=== PATIENT | female | born 1965 | race African-American/Black ===

== ENCOUNTER 2017-02-06 12:07 | Emergency (ER) | payer OTHER ==
[~2017-02-06 12:07] MED LIST: ALBU17I INH; IBUP400 PO
[2017-02-06 12:09] VITALS: BP 147/90; PULSE 97; RESP 18; TEMP 99.1; O2SAT 98
--- NOTE | 2017-02-06 12:13 | PD ---
Physical Exam Time Seen by Provider: 12:12 Narrative 51 y/o female presents for evaluation of itching and drainage of the skin around the L eye. She got scratched by a puppy a month ago. VSS Seen at triage desk. Awaiting bed placement. Data Data Last Documented VS Vital Signs Date Time Temp Pulse Resp B/P Pulse Ox O2 Delivery O2 Flow Rate FiO2 02/06/17 12:09 99.1 97 18 147/90 98 MDM Medical Record Reviewed: Yes Supervised Visit with CHARLY: No Robby Swenson February 06, 2017 12:13
[2017-02-06] MEDS ORDERED: POLY10O EACH EYE (12:38)
[2017-02-06] MEDS ORDERED: BACT800T5 PO (12:38)
[2017-02-06] MEDS ORDERED: CEPH-460 PO (12:38)
--- NOTE | 2017-02-06 12:40 | PD ---
HPI Chief Complaint: Eye Problems/Injury Time Seen by Provider: 12:36 Travel History International Travel<30 days: No Contact w/Intl Traveler<30days: No Traveled to known affect area: No History of Present Illness HPI 51-year-old female presents to the emergency Department with complaint of a rash underneath her eyes times one month and clear eye drainage for the past few days. The rash started underneath her left eye and has spread to underneath her right eye within the past month. She denies change in vision. Denies eye pain, itchiness, irritation. Denies fever, vomiting. She has tried Neosporin to the rash with no relief of symptoms. She denies the rash is painful or itchy. She has an appointment with medical services assistant in 2 weeks and is requesting antibiotics. Allergies to morphine. She has no other medical complaints. No other modifying factors or associated signs and symptoms. PFSH Past Medical History Asthma: Yes Cardiovascular Problems: No Diabetes: Yes Patient Takes Glucophage: No Diminished Hearing: No Respiratory: Yes (ASTHMA) Immunizations Current: Yes Tetanus Vaccination: < 5 Years ?: Not Menopausal: Yes : 1 Para: 2 Past Surgical History Section: Yes Hysterectomy: Yes Social History Alcohol Use: No Tobacco Use: Yes (1 cigar SOMEDAYS) Substance Use: Yes (daily marijuana) Allergies-Medications (Allergen,Severity, Reaction): Coded Allergies: Morphine (Verified Adverse Reaction, Intermediate, ITCHING, 02/06/17) Reported Meds & Prescriptions Reported Meds & Active Scripts Active Keflex (Cephalexin) 500 Mg Cap 500 Mg PO Q8H 10 Days Bactrim DS (Sulfamethoxazole-Trimethoprim) 800-160 Mg Tab 1 Tab PO BID 10 Days Polytrim Opth Drops (Polymyxin/Trimethoprim Sulfate) 10,000-0.1 Unit/Ml-% Soln 2 Drop EACH EYE Q6HR 7 Days Proventil Mdi (Albuterol Sulfate) 17 Gm Aero 2 Puff INH Q4 PRN Reported Motrin 400 mg Tab (Ibuprofen) 400 Mg Tab 400 Mg PO Q6H PRN Review of Systems Except as stated in HPI: all other systems reviewed are Neg Physical Exam Narrative GENERAL: Well-nourished, well-developed female patient, in no acute distress SKIN: Warm and dry. Erythemic nonspecific skin eruption with different stages of healing below bilateral eyes; left worse than right; there are no signs of infection and both areas are without edema or drainage. HEAD: Atraumatic. Normocephalic. Pupils equal and round at 3 mm with brisk reaction. PERRLA. EOMI. visual acuity 20/40 bilateral. Bilateral eye without scleral erythema and mild lid edema. No orbital tenderness, erythema or cellulitis. Bilateral eye without photophobia. No consensual photophobia. No scleral icterus. Clear drainage. ENT: Mucosa pink and moist. Airway patent. NECK: Trachea midline. CARDIOVASCULAR: Regular rate and rhythm. RESPIRATORY: No accessory muscle use. GASTROINTESTINAL: Flat. MUSCULOSKELETAL: No obvious deformities. No clubbing. No cyanosis. No edema. NEUROLOGICAL: Awake and alert. Oriented 3. No obvious cranial nerve deficits. Motor grossly within normal limits. Normal speech. PSYCHIATRIC: Appropriate mood and affect; insight and judgment normal. Data Data Last Documented VS Vital Signs Date Time Temp Pulse Resp B/P Pulse Ox O2 Delivery O2 Flow Rate FiO2 02/06/17 12:09 99.1 97 18 147/90 98 MDM Medical Decision Making Medical Screen Exam Complete: Yes Emergency Medical Condition: Yes Medical Record Reviewed: Yes Differential Diagnosis Shingles, herpes, nonspecific skin eruption, eye drainage Narrative Course 51-year-old female with nonspecific rash below both eyes; left worse than right. The rash appears to be consistent with a vesicular rash and is in different stages of healing. The rash has been there for one month. There are no signs of cellulitis or infection. Over the past few days her eyes started draining clear drainage. She is requesting antibiotics for her eyes and rash. She has an ophthalmology appointment in 2 weeks. Her vision bilaterally is 20/ 40. She denies change in vision. I will prescribe Keflex, Bactrim, and Polytrim eyedrops per request of patient. Instructed patient to follow up with ophthalmology and dermatology. Patient verbalizes understanding and agreement with treatment plan. Patient is medically cleared and stable for discharge. Discussed reasons to return to the emergency department. Instructed patient to follow up with primary care provider. Patient agrees with treatment plan. The patients vital signs are stable and the patient is stable for outpatient follow- up and treatment. Patient discharged home, stable and in no acute distress. Diagnosis Primary Impression: Rash and nonspecific skin eruption Additional Impression: Eye drainage Referrals: [employer] [facility] Primary Care Physician Patient Instructions: Acute Rash (ED), General Instructions Departure Forms: Tests/Procedures, Work Release Enter return to work date: February 07, 2017 Additional Instructions: Ibuprofen or Tylenol as directed and as needed for pain/inflammation Keep rash area clean and dry Follow-up with ophthalmology Follow-up with dermatology next line return to the emergency department immediately if worsening of symptoms Med/Other Pt SpecificInfo: Prescription(s) given Scripts Cephalexin (Keflex)500 Mg [id number] Mg PO Q8H 10 Days Ref 0 Prov:Mabel Lindquist 02/06/17 Sulfamethoxazole-Trimethoprim (Bactrim DS)800-160 Mg Tab1 Tab PO BID 10 Days Ref 0 Prov:Mabel Lindquist 02/06/17 Polymyxin B-Trimethoprim Opth Drops (Polytrim Opth Drops)10,000-0.1 Unit/Ml-% Soln2 Drop EACH EYE Q6HR 7 Days Ref 0 Prov:Mabel Lindquist 02/06/17 Disposition: 01 DISCHARGE HOME Condition: Stable Mabel Lindquist February 06, 2017 12:40
== END 2017-02-06 13:10 | disposition home or self-care (01) ==
LOC: NEPK 12:07
DX: R21 Rash and other nonspecific skin eruption (principal); H57.8 Other specified disorders of eye and adnexa; J45.909 Unspecified asthma, uncomplicated; E11.9 Type 2 diabetes mellitus without complications; Z72.0 Tobacco use
CPT/HCPCS: 99283